=== PATIENT | male | born 1935 | race African-American/Black ===

== ENCOUNTER 2017-08-13 15:30 | Emergency (ER) | payer OTHER, BC ==
[2017-08-13 15:52] VITALS: BP 126/70; PULSE 73; TEMP 98.3; BMI 31.0
[2017-08-13] MEDS ORDERED: INDOMETHACIN 50 MG CAPSULE PO ONE (17:05)
--- NOTE | 2017-08-13 17:05 | PDOC ---
History of Present Illness - General Chief Complaint: Pain, Acute Stated Complaint: PAIN Time Seen by Provider: 08/13/17 16:18 History Source: Patient Exam Limitations: No Limitations - History of Present Illness Initial Comments: 08/13/17 17:46 My chief complaint: Pain from below right knee to right foot sudden onset today with swelling of right foot and ankle with difficulty walking History of present illness: Patient is an 81-year-old male with a history of hypertension hyperlipidemia, gout and coronary artery difficulty disease with stent placement here today with sudden onset of pain from below right knee to right foot. He is having difficulty ambulating due to pain and right foot. Patient reports the pain started today when he got out of bed and pain is gotten worse as the day has progressed. Patient denies any knee pain. Patient reports drinking at times denies eating excessive amounts of meat or shell fish. Patient denies any injury. Patient denies any fever. 08/13/17 18:13 Timing/Duration: getting worse Severity: severe (rt. lower leg from below knee to foot ) Associated Symptoms: reports: denies symptoms Past History - Past Medical History Allergies/Adverse Reactions: Allergies Allergy/AdvReac Type Severity Reaction Status Date / Time No Known Allergies Allergy Verified 08/13/17 15:47 Home Medications: Ambulatory Orders Indomethacin [Indocin -] 50 mg PO TID #12 capsule 08/13/17 COPD: No HTN: Yes Hypercholesterolemia: Yes - Suicide/Smoking/Psychosocial Hx Smoking History: Never smoked Hx Alcohol Use: No Drug/Substance Use Hx: No Review of Systems - Review of Systems Able to Perform ROS?: Yes Constitutional: No: Symptoms Reported HEENTM: No: Symptoms Reported Respiratory: No: Symptoms reported Cardiac (ROS): No: Symptoms Reported ABD/GI: No: Symptoms Reported : No: Symptoms Reported Musculoskeletal: Yes: Joint Pain (rt. foot/ medial ankle), Joint Swelling (rt. foot ankle ), Muscle Pain (rt. posterior calf ) Integumentary: Yes: Other (increased warmth rt. dorsal medial foot) Neurological: No: Symptoms reported *Physical Exam - Vital Signs Last Vital Signs Temp Pulse Resp BP Pulse Ox 98.3 F 73 20 126/70 97 08/13/17 15:47 08/13/17 15:47 08/13/17 15:47 08/13/17 15:47 08/13/17 15:47 - Physical Exam General Appearance: Yes: Appropriately Dressed Respiratory/Chest: positive: Lungs Clear, Normal Breath Sounds. negative: Chest Tender, Respiratory Distress Cardiovascular: positive: Regular Rhythm, Regular Rate, S1, S2 Extremity: positive: Normal Capillary Refill, Normal Range of Motion (rt. foot/ ankle/knee), Tender (rt. dorsal/medial foot ), Swelling (rt.dorsal/medial foot, posterior calf ), Other (tenderness of posterior rt calf, questionable + John rt. ). negative: Normal Inspection Integumentary: positive: Normal Color, Warm (right dorsal/medial foot ), Swelling (rt.dorsal foot/medial ankle) Neurologic: positive: Alert, Normal Response, Respond to painful stimul, Responsive Medical Decision Making - Medical Decision Making 08/13/17 17:48 Patient is an 81-year-old male with a history of hypertension hyperlipidemia, gout and coronary artery difficulty disease with stent placement here today with sudden onset of pain from below right knee to right foot. She is having difficulty ambulating due to pain and right foot. Patient reports the pain started today when he got out of bed and pain is gotten worse as the day has progressed. Patient denies any knee pain. Patient reports drinking at times denies eating excessive amounts of meat or shell fish. Patient denies any injury. Patient denies any fever. Right ankle/foot edema with increased warmth R/O gout rt. calf tenderness with slight edema R/O DVT PLAN: uric acid CRP 1.7 Ultrasound venous doppler rt. leg no DVT identified per Dr. Strickland indocin 50 mg po now(2 tabs of 25 mg) than tid X 2 days pt to follow up with primary care provider tomorrow 08/13/17 18:26 08/13/17 18:42 Laboratory Results - last 24 hr 08/13/17 08/13/17 17:10 17:10 Uric Acid 8.9 H C-Reactive Protein 1.7 H patient continues to c/o pain right foot with difficulty ambulating 08/13/17 20:05 08/13/17 20:11 POST OP SHOE GIVEN NURSING JUDICIAL ADMINISTRATIVE ASSISTANT CALLED TO TRY TO GET CANE FOR PT 08/13/17 20:26 cane given, pt is able to ambulate with a cane well *DC/Admit/Observation/Transfer Diagnosis at time of Disposition: Gout attack Qualifiers: Gout site: foot Gout etiology: unspecified cause Laterality: right Qualified Code(s): M10.9 - Gout, unspecified - Discharge Dispostion Disposition: HOME Condition at time of disposition: Stable - Prescriptions Prescriptions: Indomethacin [Indocin -] 50 mg PO TID #12 capsule - Patient Instructions Additional Instructions: YOU MUST FOLLOW UP WITH YOUR PRIMARY CARE PROVIDER TOMORROW FOR FURTHER EVALUATION DRINK A LOT OF WATER AVOID ANY ALCOHOLIC BEVERAGES, OR RED MEAT, SHELL FISH PATIENT VOICED UNDERSTANDING OF DISCHARGE INSTRUCTIONS AND ALL QUESTIONS WERE ANSWERED THANK YOU FOR CHOOSING [facility] FOR YOUR MEDICAL NEEDS TODAY
== END 2017-08-13 20:31 | disposition home or self-care (01) ==
LOC: JERFT 15:30
DX: M10.9 Gout, unspecified (principal); I25.10 Atherosclerotic heart disease of native coronary artery without angina pectoris; I10 Essential (primary) hypertension; Z95.5 Presence of coronary angioplasty implant and graft; E78.00 Pure hypercholesterolemia, unspecified
CPT/HCPCS: 36415; 84550; 86140; 93971-TC; 99281-25

== ENCOUNTER 2017-09-10 08:18 | Emergency (ER) | payer OTHER, BC ==
[2017-09-10 08:30] VITALS: TEMP 98.2; BMI 30.5
--- NOTE | 2017-09-10 08:56 | PDOC ---
History of Present Illness - General Chief Complaint: Pain Stated Complaint: RT FOOT/LEG PAIN Time Seen by Provider: 09/10/17 08:51 - History of Present Illness Initial Comments: 09/10/17 08:54 81 yo M with h/o HTN, HLD, NIDDM, and CAD s/p stent placement x 1 presents with right foot pain. Patient reports ongoing right foot pain for the past 1 month. Pain extends from ankle to dorsum and plantar surface of foot. Denies foot trauma. Pain worse with ambulation. Normally ambulates with cane, but recently lost his cane. Does not recall name of perscription medication. Denies N/V, fevers/chills, swelling, skin changes, calf pain, burning, numbness/tinlging, weakness of involved ext. Denies chest pain, SOB, lightheadedness. No recent trips, long traveling, surgery, or h/o DVT. States that he was seen 3 times in ED this month. Last seen at [facility] ED (08/21/17) for same complaint of pain of Rt. big toe and arch of R foot. Was given Indocin and discharged on Prednisone and Naproxen. No DVT on U/s ( 08/13/17). No seismograph helper. Past History - Past Medical History Allergies/Adverse Reactions: Allergies Allergy/AdvReac Type Severity Reaction Status Date / Time No Known Allergies Allergy Verified 09/10/17 08:30 Home Medications: Ambulatory Orders Colchicine 0.6 mg PO ONCE 5 Days #5 capsule 09/10/17 Tramadol HCl 50 mg PO PRN #24 tablet MDD 6 09/10/17 Cardiac Disorders: Yes COPD: No Diabetes: Yes HTN: Yes Hypercholesterolemia: Yes - Surgical History Cardiac Surgery: Yes (stent) - Suicide/Smoking/Psychosocial Hx Smoking History: Never smoked Hx Alcohol Use: No Drug/Substance Use Hx: No Substance Use Type: None Review of Systems - Review of Systems Comments:: 09/10/17 08:56 GENERAL/CONSTITUTIONAL: No fever or chills. No weakness. HEAD, EYES, EARS, NOSE AND THROAT: No change in vision. No ear pain or discharge. No sore throat.- CARDIOVASCULAR: No chest pain or shortness of breath RESPIRATORY: No cough, wheezing, or hemoptysis. GASTROINTESTINAL: + Constipation. No nausea, vomiting, diarrhea. GENITOURINARY: No dysuria, frequency, or change in urination. MUSCULOSKELETAL: + Right foot pain. No joint or muscle swelling . No neck or back pain. SKIN: No rash NEUROLOGIC: No headache, vertigo, loss of consciousness, or change in strength/ sensation. ENDOCRINE: No increased thirst. No abnormal weight change HEMATOLOGIC/LYMPHATIC: No anemia, easy bleeding, or history of blood clots. ALLERGIC/IMMUNOLOGIC: No hives or skin allergy. *Physical Exam - Vital Signs Last Vital Signs Temp Pulse Resp BP Pulse Ox 98.2 F 85 18 158/89 99 09/10/17 08:28 09/10/17 08:28 09/10/17 08:28 09/10/17 08:28 09/10/17 08:28 - Physical Exam Comments: 09/10/17 08:56 HEAD: No signs of trauma, normocephalic, atraumatic EYES: PERRLA, EOMI, sclera anicteric, conjunctiva clear ENT: Hearing grossly normal, nares patent, oropharynx clear without exudates. Moist mucosa NECK: Normal ROM,no JVD, or masses LUNGS: No distress, speaks full sentences, clear to auscultation bilaterally HEART: Regular rate and rhythm, normal S1 and S2, no murmurs, rubs or gallops, peripheral pulses normal and equal bilaterally. ABDOMEN: Soft, nontender, normoactive bowel sounds. No guarding, no rebound. No masses EXTREMITIES : Normal inspection, Normal range of motion, no edema. No clubbing or cyanosis. Feet: + Right foot ttp at medial and plantar surface of foot. 5/5 Strength BL LE. Absent skin changes. Neg warmth, erythema, indruation, fluctuance. SKIN: Warm, Dry, normal turgor, no rashes or lesions noted. Medical Decision Making - Medical Decision Making 09/10/17 09:56 81 yo M with h/o HTN, HLD, NIDDM, and CAD s/p stent placement x 1 presents ongoing right foot pain for the past 1 month extending from ankle to dorsum and plantar surface of foot. Denies foot trauma. Pain worse with ambulation. Denies N/V, fevers/chills, swelling, skin changes, calf pain, burning, numbness/ tinlging, weakness of involved ext. No recent trips, long traveling, surgery, or h/o DVT. States that he was seen 3 times in ED this month. Last seen at [facility] ED (08/21/17) for same complaint of pain of Rt. big toe and arch of R foot. + Right foot ttp at medial and plantar surface of foot. 5/5 Strength BL LE. Absent skin changes. Neg warmth, erythema, indruation, fluctuance. Low suspicion for cellulitis, or DVT. S/s most likely 2/2 gout. ED Course: Tramadol 50 mg Colchicine 1.2 mg 09/10/17 12:37 Colchicine 0.6 mg 09/10/17 16:07 Patient foot improved after multiple doses of Tramadol and Colchicine. He is able to ambulate without assistance.Will discharge with [facility] visiting nurse service to f/u within one week per social work. He lives 2 hours away from [facility] and will need to receive local services. Patient Nephew currently resides with patient. 09/10/17 16:07 Sent Colchicine, and Tramadol to patient pharmacy. Advised him to follow up with rheumatology for chronic pain control related to his gout. Stable for discharge with strict return precautions. *DC/Admit/Observation/Transfer Diagnosis at time of Disposition: Gout attack Qualifiers: Gout site: foot Gout etiology: unspecified cause Laterality: right Qualified Code(s): M10.9 - Gout, unspecified - Discharge Dispostion Disposition: HOME Condition at time of disposition: Stable Admit: No - Prescriptions Prescriptions: Colchicine 0.6 mg PO ONCE 5 Days #5 capsule Tramadol HCl 50 mg PO PRN #24 tablet MDD 6 - Referrals Referrals: Eyal Harrington MD [Primary Care Provider] - Eric Quinn MD [Staff Physician] - - Patient Instructions Additional Instructions: Please return to the emergency department with any new or worsening symptoms or concerns. Please follow up with Rheumatology within the next 1 week. - Post Discharge Activity - Attestations Physician Attestion: 09/10/17 12:41 I attest to the information provided in this note.
[2017-09-10] MEDS ORDERED: INDOMETHACIN 50 MG CAPSULE PO ONE (09:24)
[2017-09-10] MEDS ORDERED: COLCHICINE 0.6 MG TABLET (FP) PO ONE ×2 (09:52→12:31)
[2017-09-10] MEDS ORDERED: traMADol HCL 50 MG TABLET PO ONE (09:53)
--- NOTE | 2017-09-10 10:45 | PDOC ---
Attending Attestation - Resident Resident Name: Bishop Michael - ED Attending Attestation I have performed the following: I have examined & evaluated the patient, The case was reviewed & discussed with the resident, I agree w/resident's findings & plan, Exceptions are as noted - HPI HPI: 09/10/17 10:40 81y/o M with recurring R foot pain over the last month, relieved after last visit with indocin but returned over the last 5 days so presents for evaluation. no injury, doppler negative on 08/13, slightly elevated uric acid and CRP on 08/21. no redness/f/c. walks with cane but lost his cane so presents for pain control. - Physicial Exam PE: 09/10/17 10:45 Afebrile. Well-appearing Right foot: Slight soft tissue swelling distal to the ankle and over the dorsum of the foot, no erythema, neurovascularly intact, full range of motion of ankle and toes without effusions. No focal joint pathology. - Medical Decision Making 09/10/17 10:46 Patient seen and evaluated with the resident. I agree with the overall evaluation, assessment, and management with the following summary of visit: 81-year-old male with possible gout presents with recurring right foot pain over the last month, temporarily relieved with anti-inflammatories on 08/21 now with return of pain. No trauma, no evidence of infection, neurovascularly intact without evidence of ischemia. Trial of anti-inflammatories again No indication for imaging at this time Stressed the importance of following up with Dr. Harrington and and/or a general activities therapist for more chronic treatment. Discharge Disposition - Diagnosis Gout attack Qualifiers: Gout site: foot Gout etiology: unspecified cause Laterality: right Qualified Code(s): M10.9 - Gout, unspecified - Discharge Dispostion Disposition: HOME Condition at time of disposition: Stable Last Admission D/C Date: 07/03/04 - Prescriptions Prescriptions: Colchicine 0.6 mg PO ONCE 5 Days #5 capsule Tramadol HCl 50 mg PO PRN #24 tablet MDD 6 - Referrals Referrals: Eric Quinn MD [Staff Physician] - Eyal Harrington MD [Primary Care Provider] - - Patient Instructions Printed Discharge Instructions: DI for Gout Additional Instructions: Discharge HOME WITH REFERRAL [facility] Please return to the emergency department with any new or worsening symptoms or concerns. Please follow up with Rheumatology within the next 1 week. - Post Discharge Activity
[2017-09-10] MEDS ORDERED: traMADol HCL 50 MG TABLET ONE (11:14)
[2017-09-10] MEDS ORDERED: COLCHICINE 0.6 MG TABLET (FP) ONE ×2 (11:14→12:31)
[2017-09-10 17:14] VITALS: BP 161/80; PULSE 81
== END 2017-09-10 17:17 | disposition home or self-care (01) ==
LOC: JER 08:18
DX: M10.9 Gout, unspecified (principal); I25.10 Atherosclerotic heart disease of native coronary artery without angina pectoris; I10 Essential (primary) hypertension; Z95.5 Presence of coronary angioplasty implant and graft; E78.00 Pure hypercholesterolemia, unspecified; E11.9 Type 2 diabetes mellitus without complications; Z79.84 Long term (current) use of oral hypoglycemic drugs
CPT/HCPCS: 99282-25